=== PATIENT | female | born 1950 | race Two or more races ===

== ENCOUNTER 2022-02-06 08:37 | Inpatient (IN) | payer OTHER ==
[~2022-02-06] VITALS: Ht 154.9 cm; Wt 41.2 kg
[2022-02-06] MEDS ORDERED: ALBUTEROL SULF 2.5 MG/0.5ML(0.5%) NEB SOLN NEB ONE ×3 (09:00→10:00)
[2022-02-06] MEDS ORDERED: IPRATROPIUM BROM 0.5 MG/2.5ML INH SOL NEB ONE ×2 (09:00→09:30)
[2022-02-06 09:24] LABS: Basophils # (auto) 0.1 10 ^3/uL (0-0.2); Basophils % (auto) 0.5 % (0.0-2.0); Eosinophils # (auto) 0 10 ^3/uL (0-0.8); Eosinophils % (auto) 0.1 % (0.0-7.0); Hematocrit 49.9 % (36.0-46.0); Lymphocytes # (auto) 0.3 10 ^3/uL (0.4-5.4); Lymphocytes % (auto) 2.9 % (10.0-50.0); Mean Corpuscular Hemoglobin 27.7 pg (28.0-32.0); Mean Corpuscular Volume 86.6 fL (80.0-100.0); Monocytes # (auto) 0.6 10 ^3/uL (0-1.3); Monocytes % (auto) 5.3 % (0.0-12.0); Neutrophils # (auto) 9.9 10 ^3/uL (1.6-8.6); Neutrophils % (auto) 91.2 % (37.0-80.0); Nucleated Red Blood Cells % 0.1 %; Red Blood Cells 5.76 10^6/uL (4.0-5.20); Red Cell Distribution Width 17.3 % (11.8-14.3); White Blood Cell 10.8 10^3/uL (4.4-10.8)
[2022-02-06] MEDS ORDERED: DexAMETHasone SOD PHOS 10MG/1ML VIAL INJ IV ONE (09:30)
[2022-02-06] MEDS ORDERED: MAGNESIUM SULFATE 1GM/100ML 100 ML IV ONE (09:30)
[2022-02-06 09:42] LABS: INR 1.09 (0.9-1.15); Partial Thromboplastin Time 26.5 sec (24.6-33.4)
[2022-02-06 10:22] LABS: Albumin 3.8 g/dL (3.4-5.0); Calcium 8.8 mg/dL (8.5-10.1); Potassium 5.2 mmol/L (3.5-5.1)
[2022-02-06 10:26] LABS: BUN/Creatinine Ratio 22.9; Bilirubin, Total 0.9 mg/dL (0.2-1.0); Total Protein 7.6 g/dL (6.4-8.2)
[2022-02-06] MEDS ORDERED: ASPirin 325 MG TAB PO ONE (10:30)
[2022-02-06 10:35] VITALS: BP 101/39
[2022-02-06 10:38] VITALS: BP 101/39
[2022-02-06] MEDS ORDERED: LORazepam 2MG/ML-1ML VIAL IV ONE (10:45)
[2022-02-06 11:52] VITALS: BP 88/37
[2022-02-06] MEDS ORDERED: FUROSEMIDE 40 MG/4 ML VIAL IV ONE (13:30)
[2022-02-06] MEDS ORDERED: ALBUTEROL SULF 2.5 MG/0.5ML(0.5%) NEB SOLN NEB PRN (13:30)
[2022-02-06] MEDS ORDERED: DOCUSATE SOD 100 MG CAP PO PRN (13:30)
[2022-02-06] MEDS ORDERED: MORPHINE SULFATE INJ 2 MG/ml SYRG IV PRN ×2 (13:30)
[2022-02-06] MEDS ORDERED: IPRATROPIUM BROM 0.5 MG/2.5ML INH SOL NEB PRN (13:30)
[2022-02-06] MEDS ORDERED: ONDANSETRON HCL 4 MG/2 ML VIAL IV PRN (13:30)
[2022-02-06] MEDS ORDERED: NITROGLYCERIN 0.4 MG SL TAB SL PRN (13:30)
[2022-02-06] MEDS ORDERED: ACETAMINOPHEN 325 MG TAB PO PRN (13:30)
[2022-02-06] MEDS: ENOXAPARIN SOD 40 MG/0.4 ML SYRINGE SC SCH (15:22)
[2022-02-06] MEDS: methylPREDNISolone SOD SUCC 125 MG/2 ML VL IV SCH ×2 (15:22→22:12)
[2022-02-06] MEDS ORDERED: NOREPINEPHRINE 8 MG/250ML KIT 250 ML IV ONE (15:39)
[2022-02-06] MEDS: NOREPINEPHRINE 8 MG/250ML KIT 250 ML IV SCH (15:45)
[2022-02-07] VITALS (48 sets, daily range): BP systolic 82–120; BP diastolic 35–95
[2022-02-07] MEDS: ENOXAPARIN SOD 40 MG/0.4 ML SYRINGE SC SCH ×2 (02:14→12:56)
[2022-02-07 05:25] LABS: Basophils # (auto) 0 10 ^3/uL (0-0.2); Basophils % (auto) 0.2 % (0.0-2.0); Eosinophils # (auto) 0 10 ^3/uL (0-0.8); Hematocrit 47.3 % (36.0-46.0); Hemoglobin 15.5 g/dL (12.2-16.2); Lymphocytes # (auto) 0.2 10 ^3/uL (0.4-5.4); Lymphocytes % (auto) 1.8 % (10.0-50.0); Mean Corpuscular Hemoglobin 27.8 pg (28.0-32.0); Mean Corpuscular Hgb Conc. 32.7 g/dL (32.0-36.0); Monocytes # (auto) 0.6 10 ^3/uL (0-1.3); Neutrophils # (auto) 10.6 10 ^3/uL (1.6-8.6); Nucleated Red Blood Cells % 0.1 %; Red Blood Cells 5.56 10^6/uL (4.0-5.20); Red Cell Distribution Width 16.6 % (11.8-14.3); White Blood Cell 11.4 10^3/uL (4.4-10.8)
[2022-02-07 05:38] LABS: Calcium 8.5 mg/dL (8.5-10.1); Potassium 4.2 mmol/L (3.5-5.1)
[2022-02-07 05:41] LABS: Albumin 3.5 g/dL (3.4-5.0); BUN/Creatinine Ratio 37.6
[2022-02-07 05:44] LABS: Bilirubin, Total 0.6 mg/dL (0.2-1.0)
[2022-02-07] MEDS: methylPREDNISolone SOD SUCC 125 MG/2 ML VL IV SCH ×3 (06:21→22:16)
[2022-02-07] MEDS: ASPirin 81 mg TAB PO SCH (08:32)
[2022-02-07] MEDS: PANTOPRAZOLE 40 MG/10 ML VIAL INJ IV SCH (08:37)
[2022-02-07] MEDS ORDERED: ENOXAPARIN SOD 40 MG/0.4 ML SYRINGE SC SCH (10:00)
[2022-02-07] MEDS ORDERED: FUROSEMIDE 20 MG/2 ML VIAL IV SCH (10:00)
[2022-02-07] MEDS: NOREPINEPHRINE 8 MG/250ML KIT 250 ML IV SCH (12:57)
[2022-02-07] MEDS: guaiFENesin 200 MG/10 ML UD GT PRN (15:47)
[2022-02-07] MEDS: DOXYCYCLINE 100MG/250ML 250 ML IV SCH (15:49)
[2022-02-07] MEDS ORDERED: ASPI-543 PO (16:07)
[2022-02-07] MEDS ORDERED: METH2.5T PO (16:07)
[2022-02-07] MEDS ORDERED: FOLI1TAB6 PO (16:09)
[2022-02-07] MEDS ORDERED: ALEN70TA74 PO (16:09)
[2022-02-07] MEDS ORDERED: LISI20TA33 PO (16:09)
[2022-02-07] MEDS ORDERED: SIMV-8 PO (16:09)
[2022-02-07] MEDS ORDERED: LEVO100T8 PO (16:09)
[2022-02-07] MEDS ORDERED: ACETYLCYSTEINE 10 %(100MG/ML) SOL 4ML NEB SCH (18:00)
[2022-02-07 18:36] LABS: Urine Bacteria FEW /hpf (None Seen); Urine Blood 3+ /uL (Negative); Urine Hyaline Cast FEW /lpf (0 - 2); Urine Mucus FEW (None Seen); Urine Specific Gravity 1.015 (1.001-1.035); Urine WBC 16 /hpf (0 - 5)
[2022-02-07] MEDS: ALBUTEROL SULF 2.5 MG/0.5ML(0.5%) NEB SOLN NEB SCH ×2 (18:39→22:25)
[2022-02-07] MEDS: IPRATROPIUM BROM 0.5 MG/2.5ML INH SOL NEB SCH ×2 (18:40→22:25)
[2022-02-07] MEDS: ACETYLCYSTEINE 10 %(100MG/ML) SOL 4ML NEB SCH (22:25)
[2022-02-08] VITALS (24 sets, daily range): BP systolic 101–143; BP diastolic 47–77
[2022-02-08] MEDS: guaiFENesin 200 MG/10 ML UD GT PRN ×2 (00:34→06:18)
[2022-02-08] MEDS: DOXYCYCLINE 100MG/250ML 250 ML IV SCH ×2 (02:45→14:15)
[2022-02-08] MEDS ORDERED: methylPREDNISolone SOD SUCC 40 MG/ML VL ONE (05:49)
[2022-02-08] MEDS: methylPREDNISolone SOD SUCC 125 MG/2 ML VL IV SCH ×3 (06:00→21:39)
[2022-02-08 06:18] LABS: Basophils # (auto) 0 10 ^3/uL (0-0.2); Basophils % (auto) 0.2 % (0.0-2.0); Eosinophils # (auto) 0 10 ^3/uL (0-0.8); Hematocrit 45.1 % (36.0-46.0); Hemoglobin 14.9 g/dL (12.2-16.2); Lymphocytes # (auto) 0.3 10 ^3/uL (0.4-5.4); Lymphocytes % (auto) 1.6 % (10.0-50.0); Mean Corpuscular Hemoglobin 28.1 pg (28.0-32.0); Mean Corpuscular Hgb Conc. 33.1 g/dL (32.0-36.0); Mean Corpuscular Volume 84.9 fL (80.0-100.0); Monocytes # (auto) 0.8 10 ^3/uL (0-1.3); Monocytes % (auto) 4.8 % (0.0-12.0); Neutrophils # (auto) 15.6 10 ^3/uL (1.6-8.6); Neutrophils % (auto) 93.4 % (37.0-80.0); Red Blood Cells 5.31 10^6/uL (4.0-5.20); Red Cell Distribution Width 17.1 % (11.8-14.3); White Blood Cell 16.7 10^3/uL (4.4-10.8)
[2022-02-08 06:43] LABS: BUN/Creatinine Ratio 45.9; Calcium 8.8 mg/dL (8.5-10.1); Potassium 4.8 mmol/L (3.5-5.1)
[2022-02-08] MEDS: IPRATROPIUM BROM 0.5 MG/2.5ML INH SOL NEB SCH ×5 (06:43→21:37)
[2022-02-08] MEDS: ALBUTEROL SULF 2.5 MG/0.5ML(0.5%) NEB SOLN NEB SCH ×5 (06:43→21:37)
[2022-02-08] MEDS: ACETYLCYSTEINE 10 %(100MG/ML) SOL 4ML NEB SCH ×3 (06:44→21:38)
[2022-02-08] MEDS ORDERED: LEVOTHYROXINE SODIUM 100 MCG TAB PO SCH (07:00)
[2022-02-08] MEDS: ASPirin 81 mg TAB PO SCH (09:59)
[2022-02-08] MEDS: PANTOPRAZOLE 40 MG/10 ML VIAL INJ IV SCH (09:59)
[2022-02-08] MEDS: ENOXAPARIN SOD 40 MG/0.4 ML SYRINGE SC SCH (09:59)
[2022-02-09] VITALS (16 sets, daily range): BP systolic 107–137; BP diastolic 52–72
[2022-02-09] MEDS: guaiFENesin 200 MG/10 ML UD GT PRN ×2 (01:28→06:37)
[2022-02-09] MEDS: DOXYCYCLINE 100MG/250ML 250 ML IV SCH ×2 (02:00→14:49)
[2022-02-09] MEDS: methylPREDNISolone SOD SUCC 125 MG/2 ML VL IV SCH (06:00)
[2022-02-09] MEDS: ALBUTEROL SULF 2.5 MG/0.5ML(0.5%) NEB SOLN NEB SCH ×5 (06:53→22:10)
[2022-02-09] MEDS: IPRATROPIUM BROM 0.5 MG/2.5ML INH SOL NEB SCH ×5 (06:53→22:10)
[2022-02-09] MEDS: ACETYLCYSTEINE 10 %(100MG/ML) SOL 4ML NEB SCH ×3 (06:53→19:40)
[2022-02-09] MEDS: ENOXAPARIN SOD 40 MG/0.4 ML SYRINGE SC SCH (09:38)
[2022-02-09] MEDS: PANTOPRAZOLE 40 MG/10 ML VIAL INJ IV SCH (09:38)
[2022-02-09] MEDS: ASPirin 81 mg TAB PO SCH (10:00)
[2022-02-09] MEDS ORDERED: FOLIC ACID 1 MG TAB PO ONE (11:45)
[2022-02-09] MEDS ORDERED: methylPREDNISolone SOD SUCC 40 MG/ML VL IV SCH (22:00)
[2022-02-10 01:37] VITALS: BP 123/56
[2022-02-10] MEDS: DOXYCYCLINE 100MG/250ML 250 ML IV SCH (02:30)
[2022-02-10] MEDS: ALBUTEROL SULF 2.5 MG/0.5ML(0.5%) NEB SOLN NEB SCH ×5 (06:50→22:33)
[2022-02-10] MEDS: IPRATROPIUM BROM 0.5 MG/2.5ML INH SOL NEB SCH ×5 (06:50→22:33)
[2022-02-10] MEDS: ACETYLCYSTEINE 10 %(100MG/ML) SOL 4ML NEB SCH ×3 (06:51→22:34)
[2022-02-10] MEDS: ASPirin 81 mg TAB PO SCH (10:00)
[2022-02-10] MEDS: FOLIC ACID 1 MG TAB PO SCH (10:00)
[2022-02-10 17:15] VITALS: BP 123/68
[2022-02-10 21:32] VITALS: BP 124/67
[2022-02-10] MEDS: DOXYCYCLINE 100 MG TAB/CAP PO SCH (21:48)
[2022-02-11 04:47] VITALS: BP 106/64
[2022-02-11 08:26] VITALS: BP 118/59
[2022-02-11] MEDS: DOXYCYCLINE 100 MG TAB/CAP PO SCH (09:01)
[2022-02-11] MEDS: ASPirin 81 mg TAB PO SCH (09:01)
[2022-02-11] MEDS: FOLIC ACID 1 MG TAB PO SCH (09:01)
[2022-02-11] MEDS ORDERED: predniSONE 20 MG TAB PO SCH (10:00)
[2022-02-11] MEDS ORDERED: PANTOPRAZOLE 40 MG TAB PO SCH (10:00)
[2022-02-11 12:34] VITALS: BP 112/78
[2022-02-11 13:58] VITALS: BP 112/78
[2022-02-11] MEDS: ALBUTEROL SULF 2.5 MG/0.5ML(0.5%) NEB SOLN NEB SCH ×2 (15:08→15:09)
[2022-02-11] MEDS: ACETYLCYSTEINE 10 %(100MG/ML) SOL 4ML NEB SCH ×2 (15:08→15:09)
[2022-02-11] MEDS: IPRATROPIUM BROM 0.5 MG/2.5ML INH SOL NEB SCH ×2 (15:08→15:09)
== END 2022-02-11 15:16 | disposition home or self-care (01) | DRG 871 ==
LOC: EDBD 08:37 → ER 08:37 → TELE 13:24 → ICU WEST 02-07 05:52 → DOU IN ICU 02-07 17:11 → TELE-WESTW 02-10 12:30
PROVIDERS: ADMIT Nurse Practitioner Family; ATTEND Internal Medicine
PROC: 5A09357 Assistance with Respiratory Ventilation, Less than 24 Consecutive Hours, Continuous Positive Airway Pressure (ICD-10-PCS; principal; 2022-02-06)
DX: A41.9 Sepsis, unspecified organism (principal); I21.A1 Myocardial infarction type 2; J15.9 Unspecified bacterial pneumonia; J96.21 Acute and chronic respiratory failure with hypoxia; J44.1 Chronic obstructive pulmonary disease with (acute) exacerbation; N17.9 Acute kidney failure, unspecified; I24.9 Acute ischemic heart disease, unspecified; J44.0 Chronic obstructive pulmonary disease with (acute) lower respiratory infection; I11.0 Hypertensive heart disease with heart failure; Z20.822 Contact with and (suspected) exposure to COVID-19; E87.5 Hyperkalemia; E03.9 Hypothyroidism, unspecified; E78.5 Hyperlipidemia, unspecified; I95.9 Hypotension, unspecified; I50.9 Heart failure, unspecified
CPT/HCPCS: 36415; 36600; 71045; 80048; 80053; 81001; 82805; 83735; 83880; 84443; 84484; 85025; 85379; 85610; 85730; 87070; 87081; 87205; 87426; 87804; 93005; 93306; 93970; 94640; 94644; 94660; 96365; 96372; 96375; 97116; 97163; 97530; 99291; C9113; G0378; J1100; J3490

== ENCOUNTER 2024-03-27 17:16 | Emergency (ER) | payer OTHER ==
[~2024-03-27] VITALS: Ht 165.1 cm; Wt 64.0 kg
[~2024-03-27 17:16] MED LIST: ALEN70TA74 PO; ASPI-543 PO; FOLI-119 PO; LEVO100T8 PO; LISI20TA60 PO; METH2.5T PO; SIMV20TA20 PO
--- NOTE | 2024-03-27 18:21 | ECG ---
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
[2024-03-27] MEDS: ALBUTEROL SULF 2.5 MG/0.5ML(0.5%) NEB SOLN NEB ONE ×2 (19:03→19:38)
[2024-03-27] MEDS: IPRATROPIUM BROM 0.5 MG/2.5ML INH SOL NEB ONE ×2 (19:03→19:38)
[2024-03-27] MEDS: AZITHROMYCIN 250 MG TAB PO ONE (19:38)
[2024-03-27] MEDS: methylPREDNISolone SOD SUCC 125 MG/2 ML VL IV ONE (19:38)
[2024-03-27 19:54] VITALS: PULSE 101; RESP 24; O2SAT 90
[2024-03-27 20:15] LABS: Basophils # (auto) 0 10 ^3/uL (0-0.2); Basophils % (auto) 0.3 % (0.0-2.0); Eosinophils # (auto) 0 10 ^3/uL (0-0.8); Eosinophils % (auto) 0.1 % (0.0-7.0); Hematocrit 38.5 % (36.0-46.0); Hemoglobin 12.8 g/dL (12.2-16.2); Lymphocytes # (auto) 0.3 10 ^3/uL (0.4-5.4); Lymphocytes % (auto) 6.3 % (10.0-50.0); Mean Corpuscular Hemoglobin 30.7 pg (28.0-32.0); Mean Corpuscular Hgb Conc. 33.3 g/dL (32.0-36.0); Mean Corpuscular Volume 92.3 fL (80.0-100.0); Monocytes # (auto) 0.7 10 ^3/uL (0-1.3); Monocytes % (auto) 13.3 % (0.0-12.0); Neutrophils # (auto) 4.2 10 ^3/uL (1.6-8.6); Platelet Count (auto) 162 10^3/uL (140-450); Red Blood Cells 4.17 10^6/uL (4.0-5.20); Red Cell Distribution Width 16.5 % (11.8-14.3); White Blood Cell 5.2 10^3/uL (4.4-10.8)
--- NOTE | 2024-03-27 20:28 | ED.PDOC ---
SOB-HPI HPI Comments 74y F who presents to the ED via EMS for chief complaint of shortness of breath. Pt states she has been having shortness of breath since Wednesday, 3 days prior with associated cough, congestion, and phlegm. Pt states she has also noticed increased shortness of breath at home despite being on 02 at home. Pt in the ED, with no noted respiratory distress and has 02 sat of 97% after being placed on 2 L. Pt otherwise denies any other symptoms at this time. Chief Complaint: Shortness of Breath Time Seen by MD: 20:23 Information Source: Patient Mode of Arrival: EMS Brought in by: EMS Past Medical History PAST MEDICAL HISTORY: COPD Constitutional: denies: chills, diaphoresis, fatigue, fever, malaise, sweats, weakness, others EENTM: reports: nose congestion; denies: blurred vision, double vision, ear bleeding, ear discharge, ear drainage, ear pain, ear ringing, eye pain, eye redness, hearing loss, mouth pain, mouth swelling, nasal discharge, nose bleeding, nose pain, photophobia, tearing, throat pain, throat swelling, voice changes, others Respiratory: reports: cough, shortness of breath; denies: hemoptysis, orthopnea, SOB at rest, SOB with excertion, stridor, wheezing, others Cardiovascular: denies: chest pain, dizzy spells, diaphoresis, Dyspnea on exertion, edema, irregular heart beat, left arm pain, lightheadedness, palpitations, PND, syncope, others Gastrointestinal: denies: abdomen distended, abdominal pain, blood streaked bowels, constipated, diarrhea, dysphagia, difficulty swallowing, hematemesis, melena, nausea, poor appetite, poor fluid intake, rectal bleeding, rectal pain, vomiting, others Genitourinary: denies: abnormal vagina bleeding, burning, dyspareunia, dysuria, flank pain, frequency, hematuria, incontinence, pain, , vagina discharge, urgency, others Neurological: denies: dizziness, fainting, headache, left sided numbness, left sided weakness, numbness, paresthesia, pre-existing deficit, right sided numbness, right sided weakness, seizure, speech problems, tingling, tremors, weakness, others Musculoskeletal: denies: back pain, gout, joint pain, joint swelling, muscle pain, muscle stiffness, neck pain, others Integumetry: denies: bruises, change in color, change in hair/nails, dryness, laceration, lesions, lumps, rash, wounds, others Allergic/Immunocompromised: denies: Difficulty Healing, Frequent Infections, Hives, Itching, others Hematologic/Lymphatic: denies: anemia, blood clots, easy bleeding, easy bruising, swollen glands, others Endocrine: denies: excessive hunger, excessive sweating, excessive thirst, excessive urination, flushing, intolerance to cold, intolerance to heat, unexplained weight gain, unexplained weight loss, others Psychiatric: denies: anxiety, bipolar disorder, depression, hopeless, panic disorder, schizophrenia, sleepless, suicidal, others All Other Systems: Reviewed and Negative Physical Exam General Appearance: No Apparent Distress, Normal HEENT: Normal ENT Inspection, Pharynx Normal, TMs Normal Neck: Full Range of Motion, Non-Tender, Normal, Normal Inspection Respiratory: Chest Non-Tender, Lungs Clear, No Accessory Muscle Use, No Respiratory Distress, Normal Breath Sounds Cardiovascular: No Edema, No JVD, No Murmur, No Gallop, Normal Peripheral Pulses, Regular Rate/Rhythm Breast Exam: Deferred Gastrointestinal: No Organomegaly, Non Tender, No Pulsatile Mass, Normal Bowel Sounds, Soft Genitalia: Deferred Pelvic: Deferred Rectal: Deferred Extremities: No calf tenderness, Normal capillary refill, Normal inspection, Normal range of motion, Non-tender, No pedal edema Musculoskeletal : Apperance: Normal Neurologic: Alert, head greenskeeper II-XII nml as Tested, No Motor Deficits, Normal Affect, Normal Mood, No Sensory Deficits Cerebellar Function: Normal Reflexes: Normal Skin: Dry, Normal Color, Warm Lymphatic: No Adenopathy Was a procedure done? Was a procedure done?: No Differential Dx Differential Diagnosis: Pneumonia, Pulmonary Embolism, Respiratory Distress, Pharyngitis, URI Comments COVID, Influenza A and B, CHF X-Ray, Labs, Meds, VS Vital Signs Date Time Temp Pulse Resp B/P (MAP) Pulse Ox O2 Delivery O2 Flow Rate FiO2 03/27/24 21:16 98.9 94 25 144/65 (91) 95 98.9 03/27/24 19:58 90 22 115/43 (67) 94 03/27/24 19:54 101 24 90 Room Air* 0 21 03/27/24 19:38 18 95 Nasal Cannula* 2 28 03/27/24 17:45 18 95 Nasal Cannula* 2 28 03/27/24 17:33 98.3 104 26 143/87 (105) 97 03/27/24 17:25 107 Lab Test 03/27/24 21:12 03/27/24 19:41 Range/Units Troponin I High Sensitivity 17 13 </=34 ng/L White Blood Count 5.2 4.4-10.8 10^3/uL Red Blood Count 4.17 4.0-5.20 10^6/uL Hemoglobin 12.8 12.2-16.2 g/dL Hematocrit 38.5 36.0-46.0 % Mean Corpuscular Volume 92.3 80.0-100.0 fL Mean Corpuscular Hemoglobin 30.7 28.0-32.0 pg Mean Corpuscular Hemoglobin Concent 33.3 32.0-36.0 g/dL Red Cell Distribution Width 16.5 H 11.8-14.3 % Platelet Count 162 140-450 10^3/uL Mean Platelet Volume 7.7 6.9-10.8 fL Neutrophils (%) (Auto) 80.0 37.0-80.0 % Lymphocytes (%) (Auto) 6.3 L 10.0-50.0 % Monocytes (%) (Auto) 13.3 H 0.0-12.0 % Eosinophils (%) (Auto) 0.1 0.0-7.0 % Basophils (%) (Auto) 0.3 0.0-2.0 % Neutrophils # (Auto) 4.2 1.6-8.6 10 ^3/uL Lymphocytes # (Auto) 0.3 L 0.4-5.4 10 ^3/uL Monocytes # (Auto) 0.7 0-1.3 10 ^3/uL Eosinophils # (Auto) 0 0-0.8 10 ^3/uL Basophils # (Auto) 0 0-0.2 10 ^3/uL Nucleated Red Blood Cells 0.0 % Sodium Level 137 136-145 mmol/L Potassium Level 4.6 3.5-5.1 mmol/L Chloride Level 99 98-107 mmol/L Carbon Dioxide Level 36 H 20-31 mmol/L Anion Gap 2 L 5-15 Blood Urea Nitrogen 22 9-23 mg/dL Creatinine 0.85 0.550-1.02 mg/dL Glomerular Filtration Rate Calc 72 >90 mL/min BUN/Creatinine Ratio 25.9 H 10.0-20.0 Serum Glucose 83 74-106 mg/dL Calcium Level 8.9 8.7-10.4 mg/dL B-Type Natriuretic Peptide 16.60 0-100 pg/mL Current Medications Medications (Trade) Dose Ordered Sig/Brii Route Start Time Stop Time Status Last Admin Ipratropium [place] (Atrovent Medneb) 0.5 mg ONCE ONCE NEB 03/27/24 17:45 03/27/24 17:46 DC 03/27/24 19:03 Albuterol (Ventolin Medneb) 2.5 mg ONCE ONCE NEB 03/27/24 17:45 03/27/24 17:46 DC 03/27/24 19:03 Albuterol (Ventolin Medneb) 5 mg ONCE ONCE NEB 03/27/24 19:30 03/27/24 19:31 DC 03/27/24 19:38 Azithromycin (Zithromax Tablet) 500 mg ONCE ONCE PO 03/27/24 19:30 03/27/24 19:31 DC 03/27/24 19:38 Ipratropium [place] (Atrovent Medneb) 0.5 mg ONCE ONCE NEB 03/27/24 19:30 03/27/24 19:31 DC 03/27/24 19:38 Methylprednisolone Sodium Succinate (Solu Medrol) 62.5 mg ONCE ONCE IV 03/27/24 19:30 03/27/24 19:31 DC 03/27/24 19:38 [place] [id number] Ph: [phone] DIAGNOSTIC IMAGING Diagnostic Imaging Report : [id number] Signed PATIENT: TREVOR ESTRADA ACCT: [id number] UNIT: [id number] : 1950 LOC: ER ROOM / BED: / AGE / SEX: 74 / F ADM STATUS: REG ER SERVICE 24 ORDERING PHYSICIAN: TEA HAMMONDS MD PROCEDURE(s): CXRP - CHEST PORTABLE REASON: sob ORDER NUMBER(s): [id number], ACCESSION NUMBER(s): [id number] CHEST RADIOGRAPH Indication: sob Technique: Single frontal view of the chest was obtained Comparison: CXRP on DOS: 02/09/22, EKG on DOS: 02/06/22, CXRP on DOS: 02/06/22 FINDINGS: Lines and Tubes: None Lungs: Bibasilar interstitial prominence may represent infiltrates or chronic disease. Pleura: No effusion. No pneumothorax. Cardiomediastinal contours: Unremarkable Bones: No acute osseous abnormality. IMPRESSION: 1. Bibasilar interstitial prominence may represent infiltrates or chronic disease. HS:Y ATED BY: RACHEL GREEN Jr., DO DICTATED DATE/TIME: 03/27/242056 SIGNED BY: RACHEL GREEN Jr., SIGNED DATE/TIME: 03/27/242056 CC: Time of 1ST Reevaluation: 21:00 Reevaluation 1ST: Unchanged Patient Education/Counseling: Diagnosis, Treatment Family Education/Counseling: No Family Present Additional Information - I reviewed the following notes from patient's past medical encounters: - The following tests were ordered, and results were reviewed by me: (Labs, X- Ray, EKG): EKG x1, BMP, BNP, CBC, troponin x3, chest x-ray, - Additional information was gathered from interviewing the following independent Historian: (Family, Other Providers, EMT): EMS - I reviewed and agreed with the following test results read by other provider: (X-ray, CT, US): radiologist - I discussed treatments and results with medical personnel and: (consultants, family): none Departure 1 Departure Time of Disposition: 22:06 (Patient likely with COPD exacerbation however patient is now on her home oxygen he is feeling better. The patient like to go home. We will discharge patient with antibiotics steroids and follow up) Impression: Primary Impression: COPD with acute exacerbation Additional Impression: Shortness of breath Disposition: HOME / SELF CARE / HOMELESS Condition: Stable Additional Instructions: You likely had a COPD exacerbation. You should use your inhaler as directed. Your prescribed steroids and azithromycin. Please take as directed. It is important to follow up with the regular doctor within 1 week. If your symptoms worsen or you have any other concerns please return to the emergency room. e-Prescriptions Prednisone (Prednisone) 20 Mg Tab 40 MG PO DAILY for 5 Days, #10 MG Prov: TEA HAMMONDS MD 03/27/24 Azithromycin (ZITHROMAX TABLET) 250 Mg Tb 250 MG PO DAILY for 4 Days, #4 TAB Prov: TEA HAMMONDS MD 03/27/24 Discharged With: Self Critical Care Note Critical Care Time?: No Stability Stability form required: No Heart Score Heart Score: Heart Score Response (Comments) Value History N/A 0 EKG N/A 0 Age N/A 0 Risk Factors N/A 0 Troponin N/A 0 Total 0 I personally scribed for TEA HAMMONDS MD ([email or web address]) on 03/27/24 at 20:28. Electronically submitted by Alan Smart [email or web address]). I personally scribed for TEA HAMMONDS MD ([email or web address]) on 03/27/24 at 20:45. Electronically submitted by Alan Smart [email or web address]). I personally scribed for TEA HAMMONDS MD ([email or web address]) on 03/27/24 at 21:41. Electronically submitted by Alan Smart [email or web address]). TEA HAMMONDS MD Mar 27, 2024 20:28
[2024-03-27 20:29] LABS: Chloride 99 mmol/L (98-107); Potassium 4.6 mmol/L (3.5-5.1); Sodium 137 mmol/L (136-145)
[2024-03-27 20:30] LABS: Anion Gap 2 (5-15)
[2024-03-27 20:31] LABS: Calcium 8.9 mg/dL (8.7-10.4)
[2024-03-27 20:35] LABS: BUN/Creatinine Ratio 25.9 (10.0-20.0); Blood Urea Nitrogen 22 mg/dL (9-23); Glucose 83 mg/dL (74-106)
[2024-03-27 20:41] LABS: Carbon Dioxide 36 mmol/L (20-31)
--- NOTE | 2024-03-27 20:59 | DVH ---
CHEST RADIOGRAPH Indication: sob Technique: Single frontal view of the chest was obtained Comparison: CXRP on DOS: 02/09/22, EKG on DOS: 02/06/22, CXRP on DOS: 02/06/22 FINDINGS: Lines and Tubes: None Lungs: Bibasilar interstitial prominence may represent infiltrates or chronic disease. Pleura: No effusion. No pneumothorax. Cardiomediastinal contours: Unremarkable Bones: No acute osseous abnormality. IMPRESSION: 1. Bibasilar interstitial prominence may represent infiltrates or chronic disease. HS:Y
[2024-03-27 21:16] VITALS: TEMP 98.9
[2024-03-27 21:30] VITALS: PULSE 88; RESP 24; O2SAT 95
[2024-03-27] MEDS ORDERED: AZIT-185 PO (22:08)
[2024-03-27] MEDS ORDERED: PRED20TA2 PO (22:08)
[2024-03-27 23:23] VITALS: BP 148/48; PULSE 95; RESP 23; O2SAT 93
== END 2024-03-27 22:50 | disposition home or self-care (01) ==
LOC: ER 17:16 → EDBD 17:16 → ER 22:50
DX: J44.1 Chronic obstructive pulmonary disease with (acute) exacerbation (principal)
CPT/HCPCS: 36415; 71045; 80048; 83880; 84484; 85025; 93005; 94640; 96374; 99285; J2919